=== PATIENT | female | born 1990 | race Hispanic/Latino ===

== ENCOUNTER 2020-09-23 15:52 | Emergency (ER) | payer OTHER ==
[~2020-09-23] VITALS: Ht 162.6 cm; Wt 63.4 kg
[2020-09-23] MEDS ORDERED: OMEP10CASR PO (16:00)
[2020-09-23] MEDS ORDERED: DICYCLOMINE 10 MG CAP PO ONE (16:30)
[2020-09-23] MEDS ORDERED: NS 1,000 ML IV ONE (16:30)
[2020-09-23] MEDS ORDERED: ONDANSETRON 4MG/2ML VIAL IV ONE (16:30)
[2020-09-23 17:07] LABS: BASO % 0.4 % (0.0-1.0); EOS # 0.1 10^3/uL (0.0-0.5); EOS % 1.6 % (0.0-3.0); HEMATOCRIT 41.6 % (36.0-47.0); HEMOGLOBIN 13.6 g/dl (12.0-15.5); LYMPH # 1.6 10^3/uL (1.5-5.0); LYMPH % 22.7 % (24.0-44.0); MEAN CORPUSCULAR HEMOGLOBIN 29.4 pg (27.0-33.0); MEAN CORPUSCULAR HGB CONC 32.7 g/dl (32.0-36.5); MEAN CORPUSCULAR VOLUME 89.8 fl (80.0-96.0); MONO # 0.5 10^3/uL (0.0-0.8); MONO % 7.3 % (0.0-5.0); NEUTROPHILS # 4.6 10^3/uL (1.5-8.5); NEUTROPHILS % 67.7 % (36.0-66.0); PLATELET COUNT, AUTOMATED 216 10^3/uL (150-450); RED BLOOD COUNT 4.63 10^6/uL (4.00-5.40); WHITE BLOOD COUNT 6.8 10^3/uL (4.0-10.0)
[2020-09-23 17:31] LABS: ALBUMIN 3.9 GM/DL (3.2-5.2); ALT/SGPT 18 U/L (12-78); BILIRUBIN,DIRECT < 0.1 MG/DL (0.0-0.2); BILIRUBIN,TOTAL 0.3 MG/DL (0.2-1.0); LIPASE 126 U/L (73-393)
[2020-09-23 17:45] LABS: RSV AMPLIFICATION NEGATIVE (NEGATIVE)
[2020-09-23] MEDS ORDERED: KETOROLAC 30 MG/ML 1ML VIAL IV ONE (18:15)
--- NOTE | 2020-09-23 18:22 | REP ---
INDICATION: epigastric abd pain. COMPARISON: None. TECHNIQUE: Supine and erect views of the abdomen performed, PA view of the chest. FINDINGS: No evidence of free intraperitoneal air or obstruction. No dilated bowel loops are seen. Few calcific densities in the pelvis probably represent phleboliths. Visualized osseous structures are unremarkable. No acute infiltrate is seen in either lung. The heart mediastinum are within normal limits. IMPRESSION: Unremarkable abdominal series. <Electronically signed by Ramesh Blevins > 09/23/20 [id number]
[2020-09-23] MEDS ORDERED: DICY10CA13 PO (19:09)
[2020-09-23] MEDS ORDERED: ONDA4TAB6 PO (19:09)
[2020-09-23] MEDS ORDERED: OMEP-218 PO (19:09)
[2020-09-23 19:24] VITALS: BP 101/68
== END 2020-09-23 19:27 | disposition home or self-care (01) ==
LOC: M ED 15:52
DX: R10.9 Unspecified abdominal pain (principal); R11.2 Nausea with vomiting, unspecified; R19.7 Diarrhea, unspecified; R50.9 Fever, unspecified; R51.9 Headache, unspecified
CPT/HCPCS: 74021; 80047; 80076; 83690; 84702; 85025; 87631; 96361; 96374; 96375; 99284; J1885; J2405

== ENCOUNTER 2020-10-08 08:15 | Day surgery (SDC) | payer OTHER ==
[~2020-10-08] VITALS: Ht 162.6 cm; Wt 67.1 kg
[~2020-10-08 08:15] MED LIST: DICY10CA13 PO; LIDOCAINE 2% 100MG/5ML SDV (FOR ANES.) As Ordered ONE; NS 1,000 ML IV ONE; OMEP-218 PO; OMEP10CASR PO; ONDA4TAB6 PO; fentaNYL 100 MCG/2 ML INJECTION (J3010) As Ordered ONE; propofoL 500 MG/50 ML VIAL As Ordered ONE
--- OUTSIDE RECORDS SUMMARY | 2020-10-08 08:19 | CCD | Continuity of Care Document ---
Author Author Val SAN Organization Unknown Address [address] [place] [id number] Phone [phone] Care Team Providers Care Feeder Operator Automatic Name Role Phone [facility] Stefano Mclaughlin [facility] AUT Unavailable Problems Description No Information Available Social History Type Date Description Comments Sex Unknown ETOH Use Denies alcohol use Recreational Drug Use Denies Drug Use Tobacco Use Start: Unknown Patient has never smoked Allergies, Adverse Reactions, Alerts Active Allergies Reaction Severity Comments Date NKDA 05/01/2020 NKEA 05/01/2020 NKFA 05/01/2020 Medications Active Medications SIG Qnty Indications Ordering Provide r Date Kpo-Yx-Sjuygnyw 0.18 /0.215/0.25 mg-25 mcg Tablets 1 by mouth every day 84tabs Leandra San M.D. 05/01/[address] 1 by mouth every day Unknown Immunizations Description No Information Available Vital Signs Date Vital Result Comment 06/28/2020 1:08pm BP Systolic 98 mmHg BP Diastolic 62 mmHg Heart Rate 55 /min Body Temperature 98.6 F Weight 144.00 lb Weight 65.318 kg Height 64 inches 5'4" BMI (Body Mass Index) 24.7 kg/m2 BSA (Body Surface Area) 1.70 m2 05/01/2020 2:54pm BP Systolic 115 mmHg BP Diastolic 72 mmHg Heart Rate 51 /min Body Temperature 97.0 F Weight 136.00 lb Weight 61.690 kg Height 64 inches 5'4" BMI (Body Mass Index) 23.3 kg/m2 BSA (Body Surface Area) 1.66 m2 Results Test Acquired Date Facility Test Result H/L Range Note Chlamydia GC/Trich 05/01/2020 [facility] Source: Genital 1 Chlamydia by Yoly Negative Negative Gonococcus by Yoly Negative Negative Trich vag by Yoly Negative Negative 1 {SOURCE: Genital Procedures Description No Information Available Medical Devices Description No Information Available Encounters Description No Information Available Assessments Date Code Description Provider 06/28/2020 N83.209 Unspecified ovarian cyst, unspec ified side Leandra San M.D. 05/01/2020 N83.209 Unspecified ovarian cyst, unspec ified side Leandra San M.D. Plan of Treatment 06/28/2020 - Leandra San M.D.* N83.209 Unspecified ovarian cyst, unspecified side* Recommendations:* Resolved * All * Referral:* [facility], * Follow up:* Fu as needed. Functional Status Description No Information Available Mental Status Description No Information Available Referrals Refer to Reason for Referral Status Appt Date [facility] ABNORMAL WT GAIN Sent [address] [place], [place] [id number] [phone]
--- OUTSIDE RECORDS SUMMARY | 2020-10-08 08:19 | CCD | Continuity of Care Document ---
Author Author Val BREAUX Organization Unknown Address [address] [place] [phone] Phone [phone] Care Team Providers Care Customer Relations Advisor Name Role Phone Tyron Gallardo AUTM Problems Active Problems Provider Date Abdominal pain Jacob Breaux M.D. Onset: 09/25/19 21 Social History Type Date Description Comments Sex Unknown ETOH Use Denies alcohol use Tobacco Use Start: Unknown Patient has never smoked Allergies, Adverse Reactions, Alerts Description No Known Drug Allergies Medications Active Medications SIG Qnty Indications Ordering Provide r Date Omeprazole 40mg Capsules DR 1 cap by mouth every morning 90caps Jacob Breaux M.D. 021 Miralax 17GM/Scoop Powder mix one capful (17gm) in 8 ounces of water and drink once daily 527units Jacob Breaux M.D. 09/25/2020 Cyclobenzaprine HCL 7.5mg Tablets Unknown Immunizations Description No Information Available Vital Signs Date Vital Result Comment 09/25/2020 1:04pm Height 64 inches 5'4" Weight 138.00 lb BP Systolic 108 mmHg BP Diastolic 71 mmHg Heart Rate 61 /min BMI (Body Mass Index) 23.7 kg/m2 Weight 62.597 kg Body Temperature 97.9 F Results Description No Information Available Procedures Description No Information Available Medical Devices Description No Information Available Encounters Type Date Location Provider Dx Diagnosis Office Visit 09/25/2020 1:00p Main Office Jacob Breaux M.D. R 63.4 Abnormal weight loss D64.9 Anemia, unspecified Assessments Date Code Description Provider 09/25/2020 R63.4 Abnormal weight loss Jacob nunez M.D. 09/25/2020 D64.9 Anemia, unspecified Jacob perez M.D. Plan of Treatment Future Appointment(s):* 10/01/2020 6:45 am - Luz Maria at Main Office * 10/08/2020 9:45 am - Jacob Breaux M.D. at Main Office 09/25/2020 - Jacob Breaux M.D.* R63.4 Abnormal weight loss* Comments:* 30 yo wf who presents for a h/o abdominal bloating/distension. No weight loss, n ausea, vomiting.No c/o abdominal pain, weight loss, change in bowel habits, or rectal bleeding. No family h/o colon cancer. No h/o chest pain, or sob. Plan:1. Colonoscopy + egd.2. informed consent. * D64.9 Anemia, unspecified* Comments:* Book for EGD and Colonoscopy.Risks and complications were reviewed with patient.Informed consent was obtained. Functional Status Description No Information Available Mental Status Description No Information Available Referrals Refer to Reason for Referral Status Appt Date Jacob Breaux M.D. Scheduled [address] [place] [phone]
--- OUTSIDE RECORDS SUMMARY | 2020-10-08 08:19 | CCD | Continuity of Care Document ---
Author Author Val BREAUX Organization Unknown Address [address] [place] [phone] Phone [phone] Care Team Providers [facility] Display Builder Name Role Phone Tyron Gallardo AUTM Problems [...] Information Available Assessments Date Code Description Provider 09/25/2020 R63.4 [...] Description No Information Available Referrals Refer to Dr Reason for Referral Status Appt Date Jacob Breaux M.D. Scheduled [address] [place] [phone]
--- OUTSIDE RECORDS SUMMARY | 2020-10-08 08:20 | CCD ---
Author Author [facility] Organization [facility] Address Unknown Phone Unavailable Care Team Providers Care Staff Counsel Name Role Phone Marisol Breaux MD Unavailable Unavailable Marisol Breaux MD Unavailable Unavailable Marisol Breaux MD Unavailable Unavailable Marisol Breaux MD Unavailable Unavailable Marisol Breaux MD Unavailable Unavailable Marisol Breaux MD Unavailable Unavailable Marisol Breaux MD Unavailable Unavailable Marisol Breaux MD Unavailable Unavailable Marisol Breaux MD Unavailable Unavailable Marisol Breaux MD Unavailable Unavailable Marisol Breaux MD Unavailable Unavailable Marisol Breaux MD Unavailable Unavailable Marisol Breaux MD Unavailable Unavailable Marisol Breaux MD Unavailable Unavailable Marisol Breaux MD Unavailable Unavailable Marisol Breaux MD Unavailable Unavailable Marisol Breaux MD Unavailable Unavailable Marisol Breaux MD Unavailable Unavailable Marisol Breaux MD Unavailable Unavailable Marisol Breaux MD Unavailable Unavailable Marisol Breaux MD Unavailable Unavailable Marisol Breaux MD Unavailable Unavailable Marisol Breaux MD Unavailable Unavailable Marisol Breaux MD Unavailable Unavailable Marisol Breaux MD Unavailable Unavailable Marisol Breaux MD Unavailable Unavailable Marisol Breaux MD Unavailable Unavailable Marisol Breaux MD Unavailable Unavailable Marisol Breaux MD Unavailable Unavailable Marisol Breaux MD Unavailable Unavailable Marisol Breaux MD Unavailable Unavailable Marisol Breaux MD Unavailable Unavailable Marisol Breaux MD Unavailable Unavailable Marisol Breaux MD Unavailable Unavailable Marisol Breaux MD Unavailable Unavailable Marisol Breaux MD Unavailable Unavailable Marisol Breaux MD Unavailable Unavailable Namita S Jacob NOBLE Unavailable Unavailable Namita S Jacob NOBLE Unavailable Unavailable Namita, S Jacob NOBLE Unavailable Unavailable Namita, S Jacob NOBLE Unavailable Unavailable Namita S Jacob NOBLE Unavailable Unavailable Namita S Jacob NOBLE Unavailable Unavailable Namita S Jacob NOBLE Unavailable Unavailable Namita S Jacob NOBLE Unavailable Unavailable Namita S Jacob NOBLE Unavailable Unavailable Namita S Jacob NOBLE Unavailable Unavailable Marisol Breaux MD Unavailable Unavailable Bunny SAN MD Unavailable Unavailable Bunny SAN MD Unavailable Unavailable Bunny SAN MD Unavailable Unavailable Bunny SAN MD Unavailable Unavailable Bunny SAN MD Unavailable Unavailable Bunny SAN MD Unavailable Unavailable Bunny SAN MD Unavailable Unavailable Bunny SAN MD Unavailable Unavailable Bunny SAN MD Unavailable Unavailable Bunny SAN MD Unavailable Unavailable Bunny SAN MD Unavailable Unavailable Bunny SAN MD Unavailable Unavailable Bunny SAN MD Unavailable Unavailable Bunny SAN MD Unavailable Unavailable Bunny SAN MD Unavailable Unavailable Bunny SAN MD Unavailable Unavailable Bunny SAN MD Unavailable Unavailable Bunny SAN MD Unavailable Unavailable Bunny SAN MD Unavailable Unavailable Bunny SAN MD Unavailable Unavailable Bunny SAN MD Unavailable Unavailable Bunny SAN MD Unavailable Unavailable Bunny SAN MD Unavailable Unavailable Bunny SAN MD Unavailable Unavailable Bunny SAN MD Unavailable Unavailable Bunny SAN MD Unavailable Unavailable Bunny SAN MD Unavailable Unavailable TURRIN, SAEED Unavailable Unavailable TURRIN, SAEED Unavailable Unavailable TURRIN, SAEED Unavailable Unavailable TURRIN, SAEED Unavailable Unavailable Re-disclosure Warning The records that you are about to access may contain information from federally-assisted alcohol or drug abuse programs. If such information is present, then the following federally mandated warning applies: This information has been disclosed to you from records protected by federal confidentiality rules (42 CFR part 2). The federal rules prohibit you from making any further disclosure of this information unless further disclosure is expressly permitted by the written consent of the person to whom it pertains or as otherwise permitted by 42 CFR part 2. A general authorization for the release of medical or other information is NOT sufficient for this purpose. The Federal rules restrict any use of the information to criminally investigate or prosecute any alcohol or drug abuse patient.The records that you are about to access may contain highly sensitive health information, the redisclosure of which is protected by Article 27-F of the [facility] Public Health law. If you continue you may have access to information: Regarding HIV / AIDS; Provided by facilities licensed or operated by the [facility] Office of Mental Health; or Provided by the [facility] Office for People With Developmental Disabilities. If such information is present, then the following [facility] mandated warning applies: This information has been disclosed to you from confidential records which are protected by state law. State law prohibits you from making any further disclosure of this information without the specific written consent of the person to whom it pertains, or as otherwise permitted by law. Any unauthorized further disclosure in violation of state law may result in a fine or nursing home sentence or both. A general authorization for the release of medical or other information is NOT sufficient authorization for further disc losure. Encounters Encounter Providers Location Date Indications Data Source(s ) Outpatient Attender: Jacob Breaux MD Main Office 09/25/2020 12:00:00 PM [facility] Attender: JARED SAN MD 12:53:00 PM EDT - 06/28/2020 12:53:00 PM EDT [facility] Outpatient Attender: AJRED SAN MD 01:28:00 PM EDT - 05/23/2020 02:28:00 PM [facility] Patient discharged. Outpatient Attender: JARED SAN MD 02:17:00 PM EDT - 05/01/2020 02:17:00 PM T [facility] Emergency Attender: SAEED CAVANAUGH 2019 01:55:00 PM EDT - 04/23/2020 04:49:00 PM EDT [facility] Patient discharged. Medications Medication Brand Name Start Date Product Form Dose Route Admi nistrative Instructions Pharmacy Instructions Status Indications Reaction Description Data Source(s) POLYETHYLENE GLYCOL 3350 142 MG/ML Oral Solution [Miralax] M iralax 09/25/2020 12:00:00 AM EST active [facility] ([facility]) Omeprazole 40 MG Delayed Release Oral Capsule Omeprazole 09/25/2020 12:00:00 AM EST ORAL active [facility] ([facility]) Bcd-Bs-Eahwsmyl Wkr-Eg-Dmtnxizr 05/01/2020 12:00:00 AM EDT ORAL active [facility] ([facility]) Insurance Providers Payer name Policy type / Coverage type Policy ID Covered constitution party ID Covered constitution party's relationship to stinson Policy [employer] Plan Information [employer] [id number] SP [id number] [employer] [place] [id number] 18 [id number] [employer] - O/P [id number] [id number] [facility] [place] [id number] 18 [id number] Problems, Conditions, and Diagnoses Code Display Name Description Problem Type Effective Dates Data Source(s) 84464890 Abdominal pain Abdominal pain Problem 09/25/2020 12:00: 00 AM EST [facility] ([facility]) [id number] Unspecified ovarian cyst, unspecified si de Unspecified ovarian cyst, unspecified side Diagnosis 06/28/2020 12:53:00 PM EDT [facility] Z09 Encounter for follow-up exam ination after completed treatment for conditions other than malignant neoplasm Encounter for follow-up examination afte r completed treatment for conditions other than malignant neoplasm Diagnosis 06/28/2020 12:53:00 PM EDT [facility] [id number] Unspecified ovarian cyst, right side Uns pecified ovarian cyst, right side Diagnosis 05/01/2020 02:17:00 PM EDT [facility] R1012 Left upper quadrant pain Left upper quadrant pain Diag nosis 04/23/2020 01:55:00 PM EDT [facility] Results ID Date Data Source [id number] 10/03/2020 11:11:00 AM EST [facility] Name Value Range Interpretation Code Description Data Sadia rce(s) Supporting Document(s) SARS coronavirus 2 RNA Not Detected [facility] [place] This lab was ordered by [facility] and reported by [facility]. ID Date Data Source [id number] 09/23/2020 04:34:00 PM EST [facility] Name Value Range Interpretation Code Description Data Sadia rce(s) Supporting Document(s) SARS coronavirus 2 RNA [Presence] in Res piratory specimen by [place] with probe detection NEGATIVE [facility] This lab was ordered by [facility] a nd reported by [facility]. ID Date Data Source [id number] 05/24/2020 01:34:00 PM EDT [facility] [address] [place] [address] PHONE: [phone] FAX: [phone] Name .................. : JOSSUE OLIVER Acct Number.................. : [id number] ROOM. ................. : Number ................... : [id number] Stay type ............. : O/P Discharge Date......... ... : 05/23/20 Admit Date ......... : 05/23/20 Admit Phys .................... : JASWINDER BINGHAM Date of ....... : 1990 Family Phys ................... : UNKNOWN Phone .................. : [phone] Age ................................ : 30 Film# .................. .:[id number] Sex ................................. : F Unsigned transcriptions are preliminary reports and do not represent a medical or legal document PELVIC [id number] COMPLETE:05/23/20 13:51 KNB 97234 (REASON FOR PELVIS: OVARIAN CYST PELVIC ULTRASOUND: FINDINGS: The uterus measures 8.4 x 2.6 x 4.6 cm. The endometrial echocomplex measures 6 mm. The right ovary measures 2.3 x 3.5 x 2.0 cm. The left ovary measures 2.5 x 2.7 x 2.1 cm. No free fluid. Small follicles in each ovary. The bladder appears normal. IMPRESSION: No acute disease. Electronically Reviewed and Signed By MATTHEW KAMARA MD , 05/24/20 13:34, Bunny Transcribe Initials: RADHIKA , Transcribe Date: 05/23/20 21:41, Dictation Date: Copy for: [address] [place] [address] Page 1 of 1 Name Value Range Interpretation Code Description Data Sadia rce(s) Supporting Document(s) ID Date Data Source [id number] 05/01/2020 03:55:00 PM EDT [facility] ([facility]) Name Value Range Interpretation Code Description Data Sadia rce(s) Supporting Document(s) Z#Other Observations Laboratory test result [facility] ([facility]) ID Date Data Source [id number] 05/01/2020 03:53:00 PM EDT [facility] ([facility]) Name Value Range Interpretation Code Description Data Sadia rce(s) Supporting Document(s) Source: Laboratory test result [facility] ([facility]) {SOURCE: Genital Gonococcus by [place] Laboratory test result [facility] ([facility]) {SOURCE: Genital Chlamydia [facility] [place] Laboratory test result [facility] ([facility]) {SOURCE: Genital Trich vag by [place] Laboratory test result [facility] ([facility]) {SOURCE: Genital ID Date Data Source [id number] 05/04/2020 05:31:00 PM EDT [facility] Name Value Range Interpretation Code Description Data Sadia rce(s) Supporting Document(s) SOURCE: Genital [facility] Chlamydia trachomatis rRNA [Presence] in Unspecified specimen by Probe and target amplification method Negative Negative [facility] Neisseria gonorrhoeae rRNA [Presence] in Unspecified specimen by Probe and target amplification method Negative Negative [facility] Trichomonas vaginalis DNA [Presence] in Unspecified specimen by Probe and target amplification method Negative Negative [facility] ID Date Data Source [id number] 04/26/2020 09:44:00 AM EDT [facility] [address] [place] [address] PHONE: [phone] FAX: [phone] Name .................. : JOSSUE OLIVER Acct Number.................. : [id number] ROOM. ................. : TR-04 Number ................... : [id number] Stay type ............. : E/R Discharge Date......... ... : 04/23/20 Admit Date ......... : 04/23/20 Admit Phys .................... : AFSHAN BIRMINGHAM Date of ....... : 1990 Family Phys ................... : UNKNOWN Phone .................. : [phone] Age ................................ : 30 Film# .................. .:[id number] Sex ................................. : F Unsigned transcriptions are preliminary reports and do not represent a medical or legal document CT ABD & PELVIS W/ IV ONLY [id number] COMPLETE:04/23/20 18:42 ED [facility] [id number] Reason(s): Abdominal Pain CT OF THE ABDOMEN AND PELVIS WITH CONTRAST: INDICATION: Abdominal pain. FINDINGS: The visualized lower lungs are clear. No enhancing liver lesions. The gallbladder, pancreas and spleen are within normal limits. The bilateral adrenal glands are unremarkable. The kidneys are within normal limits. No renal stones or hydronephrosis. The ureters are unremarkable. No aneurysmal dilatation to th e aorta. No retroperitoneal adenopathy. The bowels are unremarkable. A normal appendix. There is a right ovarian cyst measuring 2.6 cm. Fluid within the endometrial cavity. No free air or free fluid. The urinary bladder is unremarkable. The osseous structures are unremarkable. IMPRESSION: No acute abdominal or pelvic findings. No free air or free fluid. The bowels are unremarkable. Normal appendix. There is a 2.6 cm right ovarian cyst. While performing the above CT examination, radiation dose reduction was accomplished utilizing automated exposure control, adjusting of the mA and kV based on the patient's body size and/or the use of imperative reconstructive techniques. CT dose: 490.2 mGycm Contrast agent in mL: 75 Isovue 370 Page 1 of 2 [facility] [address] [place] [address] PHONE: [phone] FAX: [phone] Name .................. : JOSSUE OLIVER Acct Number.................. : [id number] ROOM. ................. : TR-04 MR Number ................... : [id number] Stay type ............. : E/R Discharge Date......... ... : 04/23/20 Admit Date ......... : 04/23/20 Admit Phys .................... : AFSHAN BIRMINGHAM Date of ....... : 1990 Family Phys ................... : UNKNOWN Phone .................. : [phone] Age ................................ : 30 Film# .................. .:[id number] Sex ........................... ...... : F Unsigned transcriptions are preliminary reports and do not represent a medical or legal document CT ABD & PELVIS W/ IV ONLY [id number] COMPLETE:04/23/20 18:42 ED [facility] [id number] Reason(s): Abdominal Pain Method of administration: Intravenous Electronically Reviewed and Signed By Armen De La Rosa MD , 04/26/20 09:44, TROY Transcribe Initials: RADHIKA , Transcribe Date: 04/23/20 22:58, Dictation Date: Copy for: [facility] via fax Copy for: EMERGENCY DEPT via modem Copy for: 710 MED REC DISCHARGED Page 2 of 2 Name Value Range Interpretation Code Description Data Sadia rce(s) Supporting Document(s) ID Date Data Source [id number] 04/23/2020 01:55:00 PM EDT [facility] 1 OrderSheet [facility] Emergency Department [address] [place] [address] Phone #: ext- [phone] 04/23/2020 13:44 Patient: MELODY MARCUM Sex: F : 1990 Age: 30yWEIGHT:60.3 kg (S) HEIGHT:64 inches (S) BMI:22.8ALLERGIES: No Known Drug AllergyCHIEF COMPLAINT: abdominal painDIAGNOSIS: Abdominal painLAB ORDERSOrder Description Priority Entered Acknowledged InitialedCBC w Diff STAT 13:54 04/23/2020 14:13 Alexander Marshall; Scot HawkinsCMP STAT 13:54 04/23/2020 14:13 Alexander Marshall; Scot HawkinsLipase STAT 13:54 04/23/2020 14:14 Alexander Marshall; Scot HawkinsUrinalysis (Clean STAT 13:54 04/23/2020 14:57 [place] EDCatch) Alexander DUMAS; Tech, Miryam ER [id number], Qual STAT 13:54 04/23/2020 14:14 Joanna,Serum Alexander DUMAS; Scot R.KietDIAGNOSTIC STUDY ORDERSOrder Description Priority Entered Acknowledged InitialedCT Abd PEL W/ IV STAT 14:40 04/23/2020 14:42 Joanna,Contrast Only Alexander DUMAS; Scot R.NKashif(Oxygen?(No))(IV?(Yes)) Reason for Study: Abdominal PainMEDICATION/IV/DRIP/FLUID ORDERSOrder Description Priority Entered Acknowledged InitialedIV NS : 125 m L/hr 13:54 04/23/2020 14:15 Alexander Marshall; Scot R.NKashifMorphine IVP 6 mg 13:54 04/23/2020 14:16 Joanna,(HIGH ALERT Alexander DUMAS; Scot R.NKashifMEDICATION)Zofran IVP 4 mg 13:54 04/23/2020 14:16 Alexander Marshall; Scot R.NKashifIV NS : Bolus 500 14:36 04/23/2020 14:42 Joanna,mL, then 125 mL/hr Alexander DUMAS; Scot Hawkins 2 OrderSheet [facility] Emergency Department [address] [place] [address] Phone #: [phone] ext- [phone] 04/23/2020 13:44 Patient: COLONPINERO, YARIMAR Sex: F : 1990 Age: 30y(NOW)GENERAL ORDERSOrder Description Priority Entered Acknowledged InitialedNPO 13:54 04/23/2020 14:13 Alexander Marshall; Scot HwakinsSaline Lock 13:54 04/23/2020 14:13 S Alexander ybarra; Scot Hawkins[Electronically signed by Scot Marshall R.N. (16:56 04/23/2020)][Electronically signed by Alexander Lomeli (17:30 04/23/2020)][Electronically locked by Scot Marshall R.N. (16:56 04/23/2020)] Name Value Range Interpretation Code Description Data Sadia rce(s) Supporting Document(s) ID Date Data Source [id number] 04/23/2020 01:55:00 PM EDT [facility] 1 Medication Reconciliation Report [facility] Emergency Department [address] [place] [address] Phone #: ext- [phone] 04/23/2020 13:44 Patient: MELODY MARCUM Sex: F : 1990 Age: 30yWeight: 60.3 kgHeight/Length: 64 in.BMI: 22.8ALLERGIES: No Known Drug AllergyThe patient's Home Medications are listed below:THE FOLLOWING MEDICATIONS NEED TO BE RECONCILED: Omeprazole Oral 40 mg, dailyThe source(s) of the original Home Medication information:patientThe following Medications were given to the patient in the Emergency Department:IV NS IV Fluids bolus 0, then 125 mL/hr, administered: 04/23/2020 2:15:00 PMZofran [IVP] IVP 4 mg, administered: 04/23/2020 2:15:00 PMMorphine [IVP] IVP 2 mg, administered: 04/23/2020 2:16:00 PMIV NS IV Fluids bolus 0, then 1000 mL/hr, administered: 04/23/2020 2:42:00 PMThe following Medications were prescribed to the patient:None. Name Value Range Interpretation Code Description Data Sadia rce(s) Supporting Document(s) ID Date Data Source [id number] 04/23/2020 01:55:00 PM EDT [facility] 1 Medication Administration Record [facility] Emergency Department [address] [place] [address] Phone #: [phone]- [phone] 04/23/2020 13:44 Patient: MELODY MARCUM Sex: F : 1990 Age: 30yWeight: 60.3 kgHeight/Length: 64 inBMI: 22.8ALLERGIES: No Known Drug Allergy Date/Time Medication Administered Medication OrderedStart IV NS IV NS : 125 mL/hr14:15 04/23/2020 Dose: IV FluidsSoScot charles, R.N. Rate: 125 mL/hr over 4 hour(s)---- Dispensed: 500 mL bagStop Site: #1 left AC16:29 04/23/2020SoScot charles R.NKashifGiven MORPHINE [IVP] Morphine IVP 6 mg (HIGH ALERT14:16 04/23/2020 Dose: 2 mg IVP MEDICATION)Scot Marshall R.N. Site: #1 left ACGiven ZOFRAN [IVP] (ONDANSETRON HCL) Zofran IVP 4 mg14:15 04/23/2020 Dose: 4 mg IVPSScot ybarra R.N. Site: #1 left ACStart IV NS IV NS : Bolus 500 mL, then 54786:42 04/23/2020 Dose: IV Fluids mL/hr (NOW)Scot Marshall R.NKashif Rate: 1000 mL/hr over 30 minute(s)---- Dispensed: 500 mL bagStop Site: #1 left AC16:00 04/23/2020Scot Marshall R.N. Name Value Range Interpretation Code Description Data Sadia rce(s) Supporting Document(s) ID Date Data Source [id number] 04/23/2020 01:55:00 PM EDT [facility] 1 General Instructions [facility] Emergency Department [address] [place] [address] Phone #: ext- [phone] 04/23/2020 13:44 Patient: MELODY MARCUM Sex: F : 1990 Age: 30yAcute left upper quadrant abdominal pain of unknown cause.Right Ovarian Cyst.INSTRUCTIONSDo not work (Off of work on 23 APR 2020).Follow-up:Return to the emergency department as needed. Follow up with your healthcare provider in one week.Call for an appointment. Reason for referral: evaluation. Summary of care provided to patient via paper.Follow up with a hand stamper and survival equipment repairer- as recommended by your health care provider.Summary of care provided to patient via paper.Understanding of the discharge instructions verbalized by patient.Follow-up with: Jared San, Obstetrics/Gynecology, , [address] [place] [address], Critical access hospital; Shayne Austin MD, Gastroenterology, [id number], [address] [place] [address], Critical access hospital Follow up. Call for an appointment. Reason for referral: evaluation. Summary of care provided to patientvia paper. ADDITIONAL INFORMATIONUnknown Causes of Abdominal Pain (Female) 2 General Instructions [facility] Emergency Department [address] [place] [address] Phone #: ext- [phone] 04/23/2020 13:44 Patient: MELODY MARCUM Sex: F : 1990 Age: 30yThe exact cause of your belly (abdominal) pain is not clear. This does not mean that this is somethingto worry about. Everyone likes to know the exact cause of the problem. But sometimes with bellypain, there is no clear-cut cause, and this could be a good thing. The good news is that yoursymptoms can be treated, and you will feel better.Your condition does not seem serious now. But sometimes the signs of a serious problem may takemore time to appear. For this reason, it is important for you to watch for any new symptoms,problems, or worsening of your condition.Over the next few days, the abdominal pain may come and go. Or it may be constant. Other commonsymptoms can include nausea and vomiting. Sometimes it can be difficult to tell if you feel nauseous.You may just feel bad and not connect that feeling to nausea. Constipation, diarrhea, and a fever maygo along with the pain.The pain may continue even if treated correctly over the following days. Depending on how things go,sometimes the cause can become clear and may need more or different treatment. Additionalevaluations, medicines, or tests may also be needed.Home careYour healthcare provider may prescribe medicine for pain, symptoms, or an infection. Follow thehealthcare provider's instructions for taking these medicines. 3 General Instructions [facility] Emergency Department [address] [place] [address] Phone #: ext- [phone] 04/23/2020 13:44 Patient: MELODY MARCUM Sex: F : 1990 Age: 30yGeneral care Rest as much as you can until your next exam. No strenuous activities. Try to find positions that ease discomfort. A small pillow placed on the abdomen may help relieve pain. Something warm on your abdomen (such as a heating pad) may help, but be careful not to burn yourself.Diet Don't force yourself to eat, especially if having cramps, vomiting, or diarrhea. Water is important so you don't get dehydrated. Soup may also be good. Sports drinks may also help, especially if they are not too acidic. Don't drink sugary drinks as this can make things worse. Take liquids in small amounts. Don't guzzle them. Caffeine sometimes makes the pain and cramping worse. Don't take dairy products if you have vomiting or diarrhea. Don't eat large amounts at a time. Wait a few minutes between bites. Eat a diet low in fiber (called a low-residue diet). Foods allowed include refined breads, white rice, fruit and vegetable juices without pulp, tender meats. These foods will pass more easily through the intestine. Don't have whole-grain foods, whole fruits and vegetables, meats, seeds and nuts, fried or fatty foods, dairy, alcohol and spicy foods until your symptoms go away.Follow-up careFollow up with your healthcare provider, or as advised, if your pain does not begin to improve in thenext 24 hours.Call [phone] if any of these occur: Trouble breathing Confusion Fainting or loss of consciousness Rapid heart rate 4 General Instructions [facility] Emergency Department [address] [place] [address] Phone #: ext- [phone] 04/23/2020 13:44 Patient: MELODY MARCUM Sex: F : 1990 Age: 30y SeizureWhen to seek medical adviceCall your healthcare provider right away if any of these occur: Pain gets worse or moves to the right lower abdomen New or worsening vomiting or diarrhea Swelling of the abdomen Unable to pass stool for more than 3 days Fever of 100.4F (38C) or higher, or as directed by your healthcare provider. Blood in vomit or bowel movements (dark red or black color) Yellow color of eyes and skin (jaundice) Weakness, dizziness Chest, arm, back, neck, or jaw pain Unexpected vaginal bleeding or missed period Can't keep down liquids or water and you are getting dehydrated [id number] [employer] [address] [facility], [place] [address]. All rights reserved. This information is not intended as asubstitute for professional medical care. Always follow your healthcare professional's instructions. You have been given the following additional information: Abdominal Pain, Unknown Cause, (Female) Do not work (Off of work on 23 APR 2020).(Electronically signed by ALESIA Camacho 04/23/2020 17:30) Name Value Range Interpretation Code Description Data Sadia rce(s) Supporting Document(s) ID Date Data Source [id number] 04/23/2020 01:55:00 PM EDT [facility] 1 Clinical Report - Nurses [facility] Emergency Department [address] [place] [address] Phone #: ext- [phone] 04/23/2020 13:44 Patient: MELODY MARCUM Sex: F : 1990 Age: 30yTRIAGEArrived by private vehicle. Historian: patient. Accompanied by (Jerri).Triage time: 13:46 04/23/2020. Acuity: LEVEL 3.Chief Complaint: ABDOMINAL PAIN.Alert. No acute distress.Onset. (5-6 days ago). ( Pt states she has had abd symptoms x4 months and PCP placed her onOmeprazole which has helped with GERD symptoms but not her pain. Pt describes LUQ pain, whenpalpated will feel pain to epigastric area and central abd. Pt states she had some diarrhea/vomiting lastweek, none today. Pain is worse with BM. Pt also c/o excessive burping). 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 Sepsis Screen negative. No suspected or confirmed signs ofinfection pr esent. (13:52 04/23/2020). --13:52 04/23/20 Margarette Read R.N.13:46 04/23/20. BP: 119/79. HR: 57. RR: 16. O2 saturation: 100%. Temp: 99.1 F. Pain level now 03/16.--13:52 04/23/20 Margarette Read R.N.Weight: 60.3 kg stated. Height/Length: 64 inches Per Patient. BMI: 22.8. --13:45 04/23/20 Margarette Read R.N.MedicationsOmeprazole Oral 40 mg, daily. --13:51 04/23/20 Margarette Read R.N.AllergiesNo Known Drug Allergy. --13:51 04/23/20 Margarette Read R.N.PROBLEMS:no known problems.Medication/allergy information source: the patient. --13:52 04/23/20 Margarette Read R.N.ADDITIONAL SURGERIES:no known surgeries.HistoryPAST MEDICAL HX: Immunizations: up-to-date. Last normal menstrual period- 03/29/20.SOCIAL HX: Never smoker. No alcohol use or drug use. No recent travel. No known contact with a sick 2 Clinical Report - Nurses [facility] Emergency Department [address] [place] [address] Phone #: ext- [phone] 04/23/2020 13:44 Patient: MELODY MARCUM Sex: F : 1990 Age: 30y individual. The patient was offered HIV testing but declined. Patient education was provided. The patient was offered hepatitis C testing but declined. Patient education was provided. The patient has not traveled outside the [place] Infectious disease exposure: No infectious disease exposure. (COVID screen negative). Patient is not a known carrier of tuberculosis, hepatitis, HIV, MRSA or VRE. Patient is not a known carrier of CRE. SELF HARM ASSESSMENT: Self harm assessment was performed. The patient answered "no" to the question(s) "Do you have thoughts of harming or killing yourself?" and "Do you have a plan for harming or killing yourself?". ABUSE ASSESSMENT: Abuse assessment. The patient had positive responses to the question(s) "Do you feel safe in your home?". Abuse denied. No suspicion of abuse. No report of abuse. NUTRITIONAL RISK ASSESSMENT: The nutritional risk assessment revealed no deficiencies. FUNCTIONAL ASSESSMENT: Functional assessment: no impairments noted. LEARNING NEEDS ASSESSMENT: The learning needs assessment revealed no barriers. FALL RISK ASSESSMENT: Fall risk assessment completed. No risk factors identified. SKIN INTEGRITY ASSESSMENT: Skin integrity risk assessment completed. No skin integr ity risk identified. --13:52 04/23/20 Margarette Read R.N. FAMILY HX: Negative. No significant family medical history. --13:58 04/23/20 ALESIA Camacho. Interventions Identification band on patient. --13:52 04/23/20 Margarette Read R.N.NURSING PROGRESS NOTES14:04 04/23/2020 Site #1 started via IV in the left antecubital space with an 20g angiocath, with aseptictechnique and good blood return; one attempt. Blood drawn: rainbow set. Labeled in the presence of thepatient and sent to the lab. Saline lock flushed with 10 mL saline. --14:14 04/23/20 Scot Marshall R.N. 14:15 04/23/2020 Started bag #1 500 mL IV Fluids IV NS; at 125 mL/hr over 4 hour(s) via site #1 via IV pump. Allergies verified and confirmed 5 rights. IV patency established. IV site checked: no pain, redness, or swelling. IV flushed thoroughly pre- and post-medication administration. Information reviewed with patient including reason for taking this medication, signs of allergic reaction and precautions. Verbalizes understanding. --14:15 04/23/20 Scot Marshall R.N. 14:15 04/23/2020 Zofran (Ondansetron HCl) IVP 4 mg given over 2 minute(s) via site #1. Allergies verified and confirmed 5 rights. IV patency established. IV site checked: no pain, redness, or swelling. IV flushed thoroughly pre- and post-medication administration. IVP given by RN. Information reviewed with patient including reason for taking this medication, signs of allergic reaction and precautions. Verbalizes 3 Clinical Report - Nurses [facility] Emergency Department [address] [place] [address] Phone #: ext- [phone] 04/23/2020 13:44 Patient: MELODY MARCUM Sex: F : 1990 Age: 30y understanding. --14:16 04/23/20 Scot Marshall R.N. 14:16 04/23/2020 Morphine IVP 2 mg given over 2 minute(s) via site #1. IV patency established. IV site checked: no pain, redness, or swelling. IV flushed thoroughly pre- and post-medication administration. IVP given by RN. Information reviewed with patient including reason for taking this medication, signs of allergic reaction, precautions and sedative warning. Verbalizes understanding. --14:16 04/23/20 Scot Marshall R.N. 14:41 04/23/20. Reassurance given. Reassessment acuity: LEVEL 3. Reassessment after medication administered. No adverse reaction. Pain g one now. Nausea gone now. She reports no complaints, she is calm and resting quietly and she has had no adverse reaction. Overall patient status is improved- she states feels better. SKIN: Skin is warm. Skin color within normal limits. Two patient identifiers checked. Call light placed in reach. Bed placed in lowest position. Brakes of bed on. Patient ready for evaluation- PA notified. --14:42 04/23/20 Scot Marshall R.N. 14:42 04/23/2020 Started bag #1 500 mL IV Fluids IV NS; at 1000 mL/hr over 30 minute(s) via site #1 via IV pump. Allergies verified and confirmed 5 rights. IV patency established. IV site checked: no pain, redness, or swelling. IV flushed thoroughly pre- and post-medication administration. Information reviewed with patient including reason for taking this medication, signs of allergic reaction and precautions. Verbalizes understanding. --14:42 04/23/20 Scot Marshall R.N. 14:59 04/23/20. BP: 122/74. MAP: 90. HR: 68. RR: 16. O2 saturation: 99%. Temp: 98.1 F. --14:59 04/23/20 [facility], [facility] Tech1 15:23 04/23/20. Patient transported to [place] by wheelchair with hydrometeorological technician. --15:38 04/23/20 Scot Marshall R.N. 15:38 04/23/20. Patient returned from [place] by wheelchair with hydrometeorological technician. --15:38 04/23/20 Scot Marshall R.N. 16:00 04/23/20. BP: 115/78. MAP: 90. HR: 68. RR: 16. O2 saturation: 99%. --16:01 04/23/20 [facility], [place], Tech1 16:00 04/23/2020 IV Fluids IV NS via IV site #1 Discontinued: bag #2 completed. Total amount infused: 500 mL. IV patency established. IV site checked: no pain, redness, or swelling. IV flushed thoroughly. --16:25 04/23/20 Scot Marshall R.N. 16:29 04/23/2020 IV Fluids IV NS via IV site #1 Discontinued: bag #1 infused upon discharge. Total amount infused: 50 mL. IV patency established. IV site checked: no pain, redness, or swelling. IV flushed thoroughly. --16:29 04/23/20 Scot Marshall R.N.DISPOSITION / DISCHARGE 16:22 04/23/20. BP: 103/57. MAP: 72. HR: 52. RR: 16. O2 saturation: 100%. Temp: 98.1 F. --16:22 4 Clinical Report - Nurses [facility] Emergency Department [address] [place] [address] Phone #: [phone] [phone] 04/23/2020 13:44 Patient: MELODY MARCUM [facility]#: [id number] Sex: F : 1990 Age: 30y [facility]/23/20 [facility] 16:29 04/23/2020 Site #1 removed upon discharge. Catheter intact. Bandage applied. --16:29 04/23/20 Scot Marshall R.N. 16:29 04/23/20. Condition at departure: improved and stable. The goals identified in the patient's plan of care were met. Fall risk assessment completed. No risk factors identified. No learning barriers present. Discharge instructions provided and reviewed with the patient. Reviewed warnings. Reviewed medication(s). Treatments reviewed. Reviewed referral to an licensed guide and a hand stamper, survival equipment repairer and primary care physician. Work note given. Patient verbalized understanding. Written instructions provided in Pakistani. The patient was discharged by the physician hygiene assistant. She was discharged home and accompanied by landscape foreman. She left ambulatory and via private vehicle. Building Energy Retrofit Technician driving. --16:30 04/23/20 Scot Marshall R.N. 16:30 04/23/20. Pain level now 0/10. --16:30 04/23/20 Scot Marshall R.N. Departure time: 16:45 04/23/2020. Work note given. --16:45 04/23/20 Scot Marshall R.N.Locked/Released at 04/23/2020 16:56 by Scot Marshall R.N. Name Value Range Interpretation Code Description Data Sadia rce(s) Supporting Document(s) ID Date Data Source [id number] 04/23/2020 01:55:00 PM EDT [facility] 1 Clinical Report - Physicians/Mid Levels [facility] Emergency Department [address] [place] [address] Phone #: ext- [phone] 04/23/2020 13:44 Patient: MELODY MARCUM Sex: F : 1990 Age: 30y Time Seen: 13:46 04/23/2020. Arrived- By private vehicle. Historian- patient. Disposition decision: 16:19 04/23/2020.HISTORY OF PRESENT ILLNESS Chief Complaint: ABDOMINAL PAIN. It is described as sharp and stabbing. No radiation. It is described as located in the left upper quadrant. (This is a 30 yo female who presents for evaluation of severe LUQ abdominal pain which has been present and progressive over the past 5 days. PT denies a previous hx of the same. She has been afebrile, she had some diarrhea a week ago, her abdominal pain causes her nausea. On presentation she appeared in pain, VSS.). Is still present. At its maximum, severity described as 10 / 10. When seen in the E.D., severity described as 10 / 10. The patient has had nausea. She has had loss of appetite (mild). No vomiting or diarrhea. No additional abdominal pain. No recent travel. Similar symptoms previously. None. Recent medical care: The patient was seen recently at another facility in the office (seen at Urgent care Clinic earlier today and referred to the ED.).REVIEW OF SYSTEMSNo constipation, black stools, hematemesis, difficulty with urination or pain with urination. No urinaryfrequency, missed periods, abnormal bleeding, bloody stools or irregular periods. No fever, headache,sore throat, blurred vision or chest pain. No difficulty breathing, cough, joint pain, skin rash or chills. Noback pain. Denies current . Last bowel movement: today. The patient has not had weightloss. All other systems reviewed and are negative.PAST HISTORYSee nurses notes. Problems: no known problems. Additional Surgeries: no known surgeries. Medications: Omeprazole Oral 40 mg, daily. Allergies: No Known Drug Allergy.SOCIAL HISTORY 2 Clinical Report - Physicians/Mid Levels [facility] Emergency Department [address] [place] [address] Phone #: ext- [phone] 04/23/2020 13:44 [id number] Sex: F : 1990 Age: 30y Never smoker. No alcohol use or drug use. No recent travel. Is a local resident. Resides in a house. Has good social support.FAMILY HISTORYNegative. No significant family medical history.ADDITIONAL NOTESThe nursing notes have been reviewed with agreement regarding the chief complaint, HPI, PMH andpatient medications and allergies.PHYSICAL EXAMVital Signs: Have been reviewed and appear to be correct.Appearance: Alert. Oriented X3. No acute distress.Eyes: Pupils equal, round and reactive to light. Eyes normal inspection.ENT: Ears normal. Nose normal. Pharynx normal.Neck: Normal inspection. Neck supple.CVS: Normal heart rate and rhythm. Heart sounds normal. Pulses normal.Respiratory: No respiratory distress. Painless inspiration. Breath sounds normal. Chest nontender.Abdomen: Soft. Severe tenderness in the left upper quadrant with guarding and rebound tendernesspresent. No Knapp's, obturator or psoas sign present. Moderate additional tenderness in the left lowerquadrant. No guarding, rebound tenderness or Knapp's, obturator or psoas sign present. Bowel soundsnormal. No organomegaly. No mass.Back: Normal inspection. No CVA tenderness.Skin: Skin warm and dry. Normal skin color. No rash. Normal skin turgor.Extremities: Extremities exhibit normal ROM. No lower extremity edema.Neuro: Oriented X 3.LABS, X-RAYS, AND EKGAbdominal CT: No acute abdominal or pelvic findings. No free air or free fluid. Bowels unremarkable.Normal appendix. There is a 2.6 cm right ovarian cyst. Abdominal CT performed with IV contrast. Thestudy was interpreted by the radiologist (see report). Interpretation time: 15:45 04/23/2020.Laboratory Tests: CBC w Diff: (BÁRBARA: 04/23/2020 14:07) ( MsgRcvd 04/23/2020 14:19) Final results Test Result Flag Units (Reference) CBC W/AUTOMATED DIFF COMPLETE BLOOD COUNT WBC 6.3 10/uL (4.2 - 11.0) RBC 4.68 10/uL (4.20 - 5.40) HEMOGLOBIN 13.9 g/dL (12.0 - 16.0) HEMATOCRIT 42.4 % (37.0 - 47.0) MCV 90.6 fL (81.0 - 101) MCH 29.7 pg (27.0 - 34.0) MCHC 32.8 g/dL (31.0 - 36.0) RDW 12.6 % (11.5 - 14.5) PLATELETS 180 10/uL (150 - 450) MPV 10.3 fL (7.4 - 10.4) NEUT 63.4 % (37.0 - 80.0) 3 Clinical Report - Physicians/Mid Levels [facility] Emergency Department [address] [place] [address] Phone #: ext- [phone] 04/23/2020 13:44 Patient: MELODY MARCUM Sex: F : 1990 Age: 30y LYMPH 26.0 % (25.0 - 40.0) MONO 7.6 % (3.0 - 8.0) EOS 2.2 % (0.0 - 7.0) BASO 0.5 % (0.0 - 2.5) %IG 0.3 H % (0.0 - 0.0) %NRBC 0.0 % (0.0 - 0.0) #NEUT 3.98 10/uL (2.00 - 6.90) #LYMPH 1.63 10/uL (0.60 - 3.40) #MONO 0.48 10/uL (0.00 - 0.90) #EOS 0.14 10/uL (0.00 - 0.70) #BASO 0.03 10/uL (0.00 - 0.20) #IG 0.02 10/uL (0.00 - 0.10) #NRBC 0.00 10/uL (0.00 - 0.00) MANUAL DIFF NOT INDICATED RBC MORPH NOT INDICATED Beta- HCG, Qual Serum: (BÁRBARA: 04/23/2020 14:07) ( MsgRcvd 04/23/2020 14:29) Final results Test Result Flag Units (Reference) HCG SERUM QUAL NEGATIVE (NORMAL: NEGAT HCG SERUM QL REENTER NEGATIVE (NORMAL: NEGAT { KIT LOT # [id number] ){ KIT EXP DATE 06.19.21 ){ PROCEDURAL CONTROL VALID ).PROGRESS AND PROCEDURESCourse of Care: PT responded well to medication in the ED. I discussed exam, lab and CT findings withthe PT and need for follow up with Gastroenterology. I discussed red flag s/s and reasons to return to theED. PT agreed with tx plan. Patient/family counseled. Disposition: Discharged home in good and improved condition. Condition: good. Vital Signs: have been reviewed and appear to be correct.CLINICAL IMPRESSION Acute left upper quadrant abdominal pain of unknown cause. Right Ovarian Cyst.INSTRUCTIONS Do not work (Off of work on 23 APR 2020). Follow-up: Return to the emergency department as needed. Follow up with your healthcare provider in one week. 4 Clinical Report - Physicians/Mid Levels [facility] Emergency Department [address] [place] [address] Phone #: ext- [phone] 04/23/2020 13:44 Patient: MELODY MARCUM Sex: F : 1990 Age: 30y Call for an appointment. Reason for referral: evaluation. Summary of care provided to patient via paper. Follow up with a hand stamper and survival equipment repairer- as recommended by your health care provider. Summary of care provided to patient via paper. Understanding of the discharge instructions verbalized by patient. Follow-up with: Jared San, Obstetrics/Gynecology, , [address] [facility], [place], [place], Critical access hospital; Shayne Austin MD, Gastroenterology, [id number], [address] [place] [address], [place], [place], Critical access hospital Follow up. Call for an appointment. Reason for referral: evaluation. Summary of care provided to patient via paper.(Electronically signed by ALESIA Camacho 17:30) Name Value Range Interpretation Code Description Data Sadia rce(s) Supporting Document(s) ID Date Data Source [id number] 04/23/2020 03:47:00 PM EDT [facility] Name Value Range Interpretation Code Description Data Sadia rce(s) Supporting Document(s) [facility] S[facility] R [facility] COL[facility] yellow NORMAL: Yellow [facility] CLARITY clear NORMAL: Clear [facility] Specific gravity of Urine by Test strip 1.025 1.001 - 1.030 [facility] pH 6 5 - 9 [facility] al Glucose [Mass/volume] in Urine by Test strip NORM NORMAL: Negat [facility] Bilirubin.total [Presence] in Urine by Test strip NEG NORMAL: Negative [facility] Ketones [Presence] in Urine by Test strip NEG NORMAL: Negative [facility] Protein [Mass/volume] in Urine by Test strip [facility] [Presence] in Urine by Test strip NEG NORMAL: Negative [facility] BLOOD 250 NORMAL: Negative [facility] Leukocyte esterase [Presence] in Urine by Test strip 25 SUBHASH L: Negative [facility] Urobilinogen [Mass/volume] in Urine by Test strip NOR less yeni n 1.0 mg/dL [facility] MICROSCOPIC See Below [facility] ital WBC 0 - 1 NORMAL: NONE SEEN [facility] Erythrocytes [#/volume] in Urine by Test strip 0 - 1 NORMAL: NON E SEEN [facility] EPITHELIAL FEW NORMAL: NONE SEEN [facility] Bacteria [Presence] in Urine sediment by Light microscopy Tr julio NORMAL: NONE SEEN [facility] ID Date Data Source [id number] 04/23/2020 02:38:00 PM EDT [facility] Name Value Range Interpretation Code Description Data Sadia rce(s) Supporting Document(s) Lipase [Enzymatic activity/volume] in Serum or Plasma 30 U/L 13 - 60 [facility] ID Date Data Source [id number] 04/23/2020 02:38:00 PM EDT [facility] Name Value Range Interpretation Code Description Data Sadia rce(s) Supporting Document(s) COMPREHENSIVE METABOLIC PANEL [facility] COMPREHENSIVE METABOLIC PANEL Sodium [Moles/volume] in Serum or Plasma 137 mEq/L 134 - 153 [facility] Potassium [Moles/volume] in Serum or Plasma 3.7 mEq/L 3.6 - 5.0 [facility] Chloride [Moles/volume] in Serum or Plasma 102 mEq/L 98 - 107 [facility] Carbon dioxide, total [Moles/volume] in Serum or Plasma 26 MEQ/L 22 - 30 [facility] Glucose [Mass/volume] in Serum or Plasma 92 MG/DL 65 - 110 [facility] BUN 10 MG/DL 7 - 21 [facility] Creatinine [Mass/volume] in Serum or Plasma 0.7 MG/DL 0.7 - 1.5 [facility] BUN/CREAT 14 8 - 27 [facility] al Protein [Mass/volume] in Serum or Plasma 6.9 G/DL 6.3 - 8.2 [facility] Albumin [Mass/volume] in Serum or Plasma 4.5 G/DL 3.9 - 5.0 [facility] Globulin [Mass/volume] in Serum by calculation 2.4 GM/DL 2.4 - 3.2 [facility] A/G RATIO 1.9 0.8 - 2.0 [facility] Calcium [Mass/volume] in Serum or Plasma 9.3 MG/DL 8.4 - 10.2 [facility] Bilirubin.total [Mass/volume] in Serum or Plasma <0.7 MG/DL 0.2 - 1.3 [facility] Alkaline phosphatase [Enzymatic activity/volume] in Serum or Plasma 57 U/L 38 - 126 [facility] Aspartate aminotransferase [Enzymatic activity/volume] in Serum or Plasma 16 U/L 5 - 40 [facility] Alanine aminotransferase [Enzymatic activity/volume] in Seru m or Plasma 8 U/L 7 - 56 [facility] Anion gap 3 in Serum or Plasma 9.0 mmol/L 8.0 - 16.0 [facility] AGE 30 yrs [facility] NON-AA GFR >60 mL/min [facility] ital AFR AMER GFR >60 mL/min [facility] Male GFR In terprentation 20-49 yrs >60 mL/min Normal 50-59 yrs >56 mL/min Normal 60-69 yrs >49 mL/min Normal 70-79yrs >42 mL/min Normal 80 and above >35 mL/min Normal Female GFR Interpretation 20-39 yrs >60 mL/min Normal 40-49 yrs >58 mL/min Normal 50-59 yrs >51 mL/min Normal 60-69 yrs >45 mL/min Normal 70-79 yrs >39 mL/min Normal 80 and above >32 mL/min Normal ID Date Data Source [id number] 04/23/2020 02:28:00 PM EDT [facility] Name Value Range Interpretation Code Description Data Sadia rce(s) Supporting Document(s) HCG SERUM QUAL NEGATIVE NORMAL: NEGATIVE [facility] HCG SERUM QL REENTER NEGATIVE NORMAL: NEGATIVE [facility] { KIT LOT # [id number] ){ KIT EXP DATE 06.19.21 ){ PROCEDURAL CONTROL VALID ) ID Date Data Source [id number] 04/23/2020 02:18:00 PM T [facility] Name Value Range Interpretation Code Description Data Sadia rce(s) Supporting Document(s) CBC W/AUTOMATED DIFF [facility] COMPLETE BLOOD COUNT Leukocytes [#/volume] in Blood by Automated count 6.3 10^3/uL 4.2 - 1 1.0 [facility] Erythrocytes [#/volume] in Blood by Automated count 4.68 10^6/uL 4. 20 - 5.40 [facility] Hemoglobin [Mass/volume] in Blood 13.9 g/dL 12.0 - 16.0 [facility] Hematocrit [Volume Fraction] of Blood by Automated count 42.4 % 3 7.0 - 47.0 [facility] Erythrocyte mean corpuscular volume [Entitic volume] by Auto mated count 90.6 fL 81.0 - 101 [facility] Erythrocyte mean corpuscular hemoglobin [Entitic mass] by Automated count 29.7 pg 27.0 - 34.0 [facility] Erythrocyte mean corpuscular hemoglobin concentration [Mass/volume] by Automated count 32.8 g/dL 31.0 - 36.0 [facility] Erythrocyte distribution width [Ratio] by Automated count 12.6 % 11.5 - 14.5 [facility] Platelets [#/volume] in Blood by Automated count 180 10^3/uL 150 - 45 0 [facility] Platelet mean volume [Entitic volume] in Blood by Automated count 10.3 fL 7.4 - 10.4 [facility] Neutrophils/100 leukocytes in Blood by Automated count 63.4 % 37. 0 - 80.0 [facility] Lymphocytes/100 leukocytes in Blood by Manual count 26.0 % 25.0 - 40.0 [facility] Monocytes/100 leukocytes in Blood by Automated count 7.6 % 3.0 - 8.0 [facility] Eosinophils/100 leukocytes in Blood by Automated count 2.2 % 0.0 - 7.0 [facility] Basophils/100 leukocytes in Blood by Automated count 0.5 % 0.0 - 2.5 [facility] %IG 0.3 % 0.0 - 0.0 [facility] [facility] %NRBC 0.0 % 0.0 - 0.0 [facility] al Neutrophils [#/volume] in Blood by Automated count 3.98 10^3/uL 2.00 - 6.90 [facility] Lymphocytes [#/volume] in Blood by Automated count 1.63 10^3/uL 0.60 - 3.40 [facility] Monocytes [#/volume] in Blood by Automated count 0.48 10^3/uL 0.00 - 0.90 [facility] Eosinophils [#/volume] in Blood by Automated count 0.14 10^3/uL 0.00 - 0.70 [facility] Basophils [#/volume] in Blood by Automated count 0.03 10^3/uL 0.00 - 0.20 [facility] #IG 0.02 10^3/uL 0.00 - 0.10 [facility]spital #NRBC 0.00 10^3/uL 0.00 - 0.00 [facility] MANUAL DIFF NOT INDICATED [facility] RBC MORPH NOT INDICATED [facility] Procedure Vital Signs ID Date Data Source UNK Name Value Range Interpretation Code Description Data Source(s) Body temperature 97.9 [degF] 97.9 [degF] [facility] ([facility]) Body weight 62.597 kg 62.597 kg [facility] Body mass index (BMI) [Ratio] 23.7 kg/m2 23.7 k g/m2 [facility] ([facility]) Heart rate 61 /min 61 /min [facility] Diastolic blood pressure 71 mm[Hg] 71 mm[Hg] [facility] ([facility]) Systolic blood pressure 108 mm[Hg] 108 mm[Hg] M [facility] ([facility]) Body weight 138.00 [lb_av] 138.00 [lb_av] [facility] T ([facility]) Body height 64 [in_i] 64 [in_i] [facility] ([facility]) 5'4" Body surface area Derived from formula 1.70 m2 1.70 m2 [facility] ([facility]) Body mass index (BMI) [Ratio] 24.7 kg/m2 24.7 k g/m2 [facility] ([facility]) Body height 64 [in_i] 64 [in_i] [facility] ([facility]) 5'4" Body weight 65.318 kg 65.318 kg [facility] ([facility]) Body weight 144.00 [lb_av] 144.00 [lb_av] [facility] T ([facility]) Body temperature 98.6 [degF] 98.6 [degF] [facility] ([facility]) Heart [facility] 55 /min 55 /[facility] Diastolic blood pressure 62 mm[Hg] 62 mm[Hg] [facility] ([facility]) Systolic blood pressure 98 mm[Hg] 98 mm[Hg] [facility] ([facility]) Body surface area Derived from formula 1.66 m2 1.66 m2 [facility] ([facility]) Body mass index (BMI) [Ratio] 23.3 kg/m2 23.3 k g/m2 [facility] ([facility]) Body height 64 [in_i] 64 [in_i] [facility] ([facility]) 5'4" Body weight 61.690 kg 61.690 kg [facility] ([facility]) Body weight 136.00 [lb_av] 136.00 [lb_av] [facility] ([facility]) Body temperature 97.0 [degF] 97.0 [degF] [facility] ([facility]) Heart rate 51 /min 51 /min [facility] ([facility]) Diastolic blood pressure 72 mm[Hg] 72 mm[Hg] [facility] ([facility]) Systolic blood pressure 115 mm[Hg] 115 mm[Hg] [facility] ([facility]) Body surface area 1.66 m2 1.66 m2 [facility] ([facility])
--- NOTE | 2020-10-08 09:12 | ROOR ---
Patient Name: Val Estrada Procedure Date: 10/08/2020 8:53 AM Date of : 1990 Age: 30 Room: [facility] Gender: Female Note Status: Finalized Procedure: Upper Endoscopy + Biopsies Indications: Heartburn, Abdominal bloating Providers: Jacob Breaux MD Referring MD: GUY TOVAR MD Requesting Provider: Medicines: Monitored Anesthesia Care Complications: No immediate complications. Procedure: Pre-Anesthesia Assessment: - The heart rate, respiratory rate, oxygen saturations, blood pressure, adequacy of pulmonary ventilation, and response to care were monitored throughout the procedure. The Endoscope was introduced through the mouth, and advanced to the second part of duodenum. The upper GI endoscopy was accomplished without difficulty. The patient tolerated the procedure well. Findings: The Z-line was regular and was found 40 cm from the incisors. Localized mild inflammation characterized by congestion (edema) and erythema was found on the greater curvature of the stomach. Biopsies were taken with a cold forceps for Helicobacter pylori testing. The exam of the duodenum was otherwise normal. Biopsies were taken with a cold forceps in the gastric antrum for Helicobacter pylori testing. The exam was otherwise without abnormality. Impression: - Z-line regular, 40 cm from the incisors. - Mucosal changes suspicious for gastritis. Biopsied. - The examination was otherwise normal. - Biopsies were taken with a cold forceps for Helicobacter pylori testing. - The examination was otherwise normal. Recommendation: - Patient has a contact number available for emergencies. The signs and symptoms of potential delayed complications were discussed with the patient. Return to normal activities tomorrow. Written discharge instructions were provided to the patient. - High fiber diet. - Discharge patient to home. - Follow an antireflux regimen. - Continue present medications. - Await pathology results. - Telephone GI clinic for pathology results in 1 week. - Return to referring physician. - The findings and recommendations were discussed with the patient. Procedure Code(s): --- Professional --- 80545, Esophagogastroduodenoscopy, flexible, transoral; with biopsy, single or multiple Diagnosis Code(s): --- Professional --- K31.89, Other diseases of stomach and duodenum R12, Heartburn R14.0, Abdominal distension (gaseous) CPT copyright 2019 [employer]. All rights reserved. The codes documented in this report are preliminary and upon label coder review may be revised to meet current compliance requirements. Jacob Breaux MD Jacob Breaux MD 10/08/2020 9:12:42 AM Electronically signed by Jacob Breaux MD Number of Addenda: 0 Note Initiated On: 10/08/2020 8:53 AM Estimated Blood Loss: Estimated blood loss: none.
[2020-10-08 09:35] VITALS: BP 116/60
== END 2020-10-08 09:35 | disposition home or self-care (01) ==
LOC: M OPP 08:15
PROVIDERS: ATTEND Internal Medicine Gastroenterology
DX: R12 Heartburn (principal); R14.0 Abdominal distension (gaseous); D13.1 Benign neoplasm of stomach; K31.89 Other diseases of stomach and duodenum; K58.9 Irritable bowel syndrome, unspecified; Z79.899 Other long term (current) drug therapy
CPT/HCPCS: 43239; 88305; J3010

== ENCOUNTER → 2022-09-22 | Outpatient (CLI) | payer OTHER ==
[~2022-09-22] MED LIST changes: -LIDOCAINE 2% 100MG/5ML SDV (FOR ANES.) As Ordered ONE; -NS 1,000 ML IV ONE; +OMEP-173 PO; -OMEP-218 PO; -fentaNYL 100 MCG/2 ML INJECTION (J3010) As Ordered ONE; -propofoL 500 MG/50 ML VIAL As Ordered ONE
== END ==
LOC: M PLAIMG 09:59
PROVIDERS: ATTEND Otolaryngology
DX: J32.4 Chronic pansinusitis (principal)

== ENCOUNTER 2023-07-14 18:15 | Emergency (ER) | payer OTHER ==
[~2023-07-14] VITALS: Ht 165.1 cm; Wt 55.5 kg
[~2023-07-14 18:15] MED LIST changes: +DICY-61 PO; -DICY10CA13 PO
[2023-07-14 20:22] LABS: RSV AMPLIFICATION NEGATIVE (NEGATIVE)
[2023-07-14] MEDS ORDERED: ACETAMINOPHEN 500 MG TAB PO ONE (23:15)
[2023-07-14] MEDS ORDERED: ONDANSETRON 4MG ORAL DISINTEGRATING TAB PO ONE (23:15)
[2023-07-15] MEDS ORDERED: KETOROLAC 30 MG/ML 1ML VIAL IM ONE (00:25)
[2023-07-15] MEDS ORDERED: KETO10TAB PO (01:34)
[2023-07-15] MEDS ORDERED: ONDA4TAB6 PO (01:34)
[2023-07-15 01:58] VITALS: BP 111/66; TEMP 98.1; O2SAT 100
== END 2023-07-15 01:59 | disposition home or self-care (01) ==
LOC: M ED 18:15
DX: R11.0 Nausea (principal); R51.9 Headache, unspecified; R68.83 Chills (without fever); B34.8 Other viral infections of unspecified site; K21.9 Gastro-esophageal reflux disease without esophagitis; F17.200 Nicotine dependence, unspecified, uncomplicated; Z79.899 Other long term (current) drug therapy
CPT/HCPCS: 87631; 96372; 99284; J1885